=== PATIENT | female | born 1940 | race Caucasian/White ===

== ENCOUNTER 2020-08-19 06:27 | Emergency (ER) | payer MEDICARE, OTHER ==
[~2020-08-19] VITALS: Ht 170.2 cm; Wt 61.2 kg
[2020-08-19] MEDS ORDERED: FENTANYL CITRATE/PF 100MCG/2 ML INJ IJ ONE (07:45)
[2020-08-19] MEDS ORDERED: LIDOCAINE 4% PATCH TP STA (08:10)
[2020-08-19] MEDS ORDERED: LIDOCAINE PAIN1 EACH TOP (08:12)
== END 2020-08-19 09:42 | disposition home or self-care (01) ==
LOC: ER 07:35
DX: S32.059A Unspecified fracture of fifth lumbar vertebra, initial encounter for closed fracture (principal); G31.89 Other specified degenerative diseases of nervous system; I10 Essential (primary) hypertension; W18.39XA Other fall on same level, initial encounter; Y92.89 Other specified places as the place of occurrence of the external cause; Z88.6 Allergy status to analgesic agent
CPT/HCPCS: 70450; 73502; 74176; 99284; J3010